=== PATIENT | male | born 1965 | race Two or more races ===

== ENCOUNTER 2020-02-08 15:16 | Emergency (ER) | payer MEDICAID, OTHER ==
[~2020-02-08] VITALS: Ht 175.3 cm; Wt 90.7 kg
[2020-02-08 16:05] VITALS: BP 137/84
[2020-02-08] MEDS ORDERED: KETOROLAC TROMETH 60MG/2ML VIAL IM ONE (17:15)
[2020-02-08] MEDS ORDERED: METHOCARBAMOL 500 MG TAB PO ONE (17:15)
== END 2020-02-08 18:02 | disposition home or self-care (01) ==
LOC: EDBD 15:16 → ER 15:16
DX: M54.5 Low back pain (principal); M53.3 Sacrococcygeal disorders, not elsewhere classified
CPT/HCPCS: 72100; 72220; 96372; 99284; J1885